=== PATIENT | male | born 1960 | race Caucasian/White ===

== ENCOUNTER → 2020-06-21 | Outpatient (CLI) | payer MEDICARE, OTHER | LOC: CT 13:57 | DX: R63.4 Abnormal weight loss (principal); R10.9 Unspecified abdominal pain | CPT/HCPCS: 36415; 82565; Q9967 ==

== ENCOUNTER → 2020-09-07 | Outpatient (CLI) | payer MEDICARE, OTHER | LOC: CT 12:14 | DX: K50.80 Crohn's disease of both small and large intestine without complications (principal); K80.20 Calculus of gallbladder without cholecystitis without obstruction; Z90.49 Acquired absence of other specified parts of digestive tract | CPT/HCPCS: 36415; 82565; 84520; Q9967 ==